=== PATIENT | female | born 1945 | race Caucasian/White ===

== ENCOUNTER → 2016-06-09 | Outpatient (CLI) | payer OTHER ==
[~2016-06-09] MED LIST: ACTONEL PO; ALEVE220 MG PO; ASPIRIN325 PO; BONIVA150 MG PO; CALCIUM 600 +1 EAC1 PO; CITRUCEL500 MG PO; FEMARA2.5 MG PO; FLAX OIL1000 MG PO; MULTIVITAMINS PO; VITAMIN C + RO500 MG PO; VITAMIN D1000 UNI1 PO
== END ==
LOC: RAD 02:23
DX: Z85.3 Personal history of malignant neoplasm of breast (principal)

== ENCOUNTER → 2016-12-29 | Outpatient (CLI) | payer OTHER | LOC: ULTRA 10:27 | DX: C50.411 Malignant neoplasm of upper-outer quadrant of right female breast (principal); C88.0 Waldenstrom macroglobulinemia; R06.02 Shortness of breath; R18.8 Other ascites ==